=== PATIENT | male | born 1965 | race Caucasian/White ===

== ENCOUNTER → 2023-11-01 | Outpatient (CLI) | payer BC ==
--- NOTE | 2023-11-01 12:13 | CTL ---
EXAMINATION TYPE: CT Low Dose Lung DATE OF EXAM ORDERED: 11/01/2023 HISTORY: Lung cancer screening CT DLP: [address] CTDI: 2.2 mGy Automated exposure control for dose reduction was used. SCREENING VISIT: First COMPARISON: None TECHNIQUE: Low dose computed tomography scan was performed through the chest at 1 mm thick sections a nd reconstructed images in multiple planes at 1 mm and [address] DIAGNOSTIC QUALITY: Satisfactory FINDINGS: There are multiple pulmonary nodules bilaterally the largest of which is in the right lower lobe reshma uring approximately 7 mm. Remaining nodules are either fissural nodules are sub-6 mm nodules. There i s a small focal faint groundglass density in the right upper lobe as well. There are no chronic lung changes. There is no abnormal consolidative/airspace density or abnormal in terstitial density. There is no pleural effusion or pneumothorax. The great vessels the chest are normal there's no mediastinal, hilar or axillary adenopathy. There is no cardiac enlargement. No focal osseous lesions are seen. Limited scanning through the upper abdomen reveals no gross abnormality. IMPRESSION: 1. Lung rads category 3 probably benign 7 mm right lower lobe nodule and multiple bilateral sub-6 mm nodules. Follow-up CT thorax in 6 months is recommended to assess stability. 2. No acute cardiopulmonary disease.
--- NOTE | 2023-11-01 13:17 | CA ---
Transthoracic Echo Report Name: Mukund Sanchez Age: 57 Gender: M : 1965 Exam Date: 11/01/2023 10:17 Exam Location: [facility] Ht (in): 68 Wt (lb): 190 Ordering Physician: Silvestre Ramos DO Attending/Referring Phys: Silvestre Ramos DO [employer] Finishing Supervisor Katie Penn RCS Procedure CPT: Indications: Z91.89 PERSONAL RISK FACTORS Cardiac Hx: Technical Quality: Good Contrast 1: Total Dose (mL): Contrast 2: Total Dose (mL): MEASUREMENTS (Male / Female) Normal Values 2D ECHO LV Diastolic Diameter PLAX 4.1 cm 4.2 - 5.9 / 3.9 - 5.3 cm LV Systolic Diameter PLAX 2.8 cm IVS Diastolic Thickness 1.0 cm 0.6 - 1.0 / 0.6 - 0.9 cm LVPW Diastolic Thickness 0.9 cm 0.6 - 1.0 / 0.6 - 0.9 cm LV Relative Wall Thickness 0.5 RV Internal Dim ED PLAX 3.1 cm LVOT Diameter 2.0 cm LV Diastolic Volume MOD BP 86.1 cm??? 67 - 155 / 56 - 104 cm??? LV Systolic Volume MOD BP 33.1 cm??? 22 - 58 / 19 - 49 cm??? LV Ejection Fraction MOD BP 61.6 % >= 55 % LV Cardiac Index MOD BP 2194.6 cm???/min???m??? LV Diastolic Volume MOD 4C 80.5 cm??? LV Systolic Volume MOD 4C 29.9 cm??? LV Ejection Fraction MOD 4C 62.9 % LV Cardiac Index MOD 4C 2092.4 cm???/min???m??? LV Diastolic Length 4C 8.6 cm LV Systolic Length 4C 6.8 cm LV Diastolic Volume MOD 2C 90.0 cm??? LV Systolic Volume MOD 2C 32.1 cm??? LV Ejection Fraction MOD 2C 64.3 % LV Cardiac Index MOD 2C 2395.4 cm???/min???m??? LV Diastolic Length 2C 9.0 cm LV Systolic Length 2C 7.9 cm LA Volume 45.1 cm??? 18 - 58 / 22 - 52 cm??? LA Volume Index 21.9 cm???/m??? 16 - 28 cm???/m??? DOPPLER AV Peak Velocity 145.4 cm/s AV Peak Gradient 8.5 mmHg AV Mean Velocity 98.1 cm/s AV Mean Gradient 4.4 mmHg AV Velocity Time Integral 28.6 cm LVOT Peak Velocity 120.9 cm/s LVOT Peak Gradient 5.8 mmHg LVOT Velocity Time Integral 26.0 cm LVOT Stroke Volume 83.4 cm??? LVOT Stroke Volume Index 41.7 ml/m??? LVOT Cardiac Index 3449.3 cm???/min???m??? AV Area Cont Eq vti 2.9 cm??? AV Area Cont Eq pk 2.7 cm??? MV Area PHT 4.9 cm??? Mitral E Point Velocity 73.5 cm/s Mitral A Point Velocity 43.4 cm/s Mitral E to A Ratio 1.7 MV Deceleration Time 155.1 ms PV Peak Velocity 96.7 cm/s PV Peak Gradient 3.7 mmHg FINDINGS Left Ventricle Left ventricular ejection fraction is estimated at 55-60 %. Left ventricular cavity size normal. Left ventricular wall thickness normal. No obvious regional wall motion abnormalities. Right Ventricle Normal right ventricular size and function. Unable to estimate right ventricular systolic pressure. Right Atrium Normal right atrial size. Left Atrium Normal left atrial size. Mitral Valve Structurally normal mitral valve. No evidence for mitral valve prolapse. No mitral stenosis. Trace mitral regurgitation. Aortic Valve Trileaflet aortic valve. No aortic valve stenosis or regurgitation. Tricuspid Valve Structurally normal tricuspid valve. No tricuspid stenosis. Trace tricuspid regurgitation. Pulmonic Valve Structurally normal pulmonic valve. No pulmonic stenosis. No pulmonic regurgitation. Pericardium No pericardial effusion. Aorta Normal size aortic root and proximal ascending aorta. CONCLUSIONS Left ventricular ejection fraction is estimated at 55-60 %. No obvious regional wall motion abnormalities. Normal right ventricular size and function. No significant valvular disease Previewed by: Dr Sudeep Gutierrez (Electronically Signed) Final Date: 01 November 2023 13:16
--- NOTE | 2023-11-01 13:19 | CA ---
Stress Echo Report Mukund Sanchez Age: 57 Gender: M : 1965 Exam Date: 11/01/2023 09:58 Exam Location: [facility] Ht (in): 68 Wt (lb): 190 Ordering Physician: Silvestre Ramos DO Referring Physician: Silvestre Ramos DO Vocal Teacher: JF BURCH Technologist Procedure CPT: Indication: Z91.89 PERSONAL RISK FACTORS ICD-9 Codes: Rhythm: Patient History: ELEVATED CHOLESTEROL LEVELS, SMOKER Cardiac Medications: VALSA Medications in past 24 hours: Contrast: Stress Results Protocol: Alex Total dose(mL): Exercise Duration (min:sec): 9:[address] Depression (mm): Angina Score: Benitez Score: METS: 11.3 Resting HR: 77 Resting BP: 118 / 63 Peak HR: 160 Peak BP: 187 / 63 Max Predicted HR: 164 98 % Max Predicted HR Target HR: 139 Double Product: [id number] Stress Summary: BP Response: Reason for Termination: MAX EXERTION/TARGET HR Cardiac Symptoms: NO SYMPTOMS ECG Analysis Resting ECG: Normal sinus rhythm, normal axis Stress ECG: Upsloping ST depressions with peak exercise. Arrhythmia: No significant arrhythmias ectopic beats Echo Analysis Resting Echo: Normal global and segmental systolic function. No obvious regional wall motion abnormality Peak Echo Analysis: No stress-induced regional wall motion abnormality. Normal augmentation of global segmental systolic function MEASUREMENTS (Male/Female) Normal Values CONCLUSIONS Good excess tolerance for age achieving 11.3 mets Nonischemic ECG and echocardiographic response to treadmill exercise Normal hemodynamic and heart response to exercise Overall normal treadmill echo stress test Dr Sudeep Gutierrez (Electronically Signed) Final Date: 01 November 2023 13:19
== END | disposition home or self-care (01) ==
LOC: RADNMMAIN 09:32
PROVIDERS: ATTEND Family Medicine
DX: Z12.2 Encounter for screening for malignant neoplasm of respiratory organs (principal); R91.8 Other nonspecific abnormal finding of lung field; Z91.89 Other specified personal risk factors, not elsewhere classified
CPT/HCPCS: 71271; 93306; 93351

== ENCOUNTER → 2023-11-05 | Outpatient (CLI) | payer BC ==
[2023-11-05 18:37] LABS: BUN/Creat Ratio 16.27 Ratio (12.00-20.00); Blood Urea Nitrogen 17.9 mg/dL (9.0-27.0); Calcium 9.8 mg/dL (8.7-10.3); Carbon Dioxide 26.5 mmol/L (21.6-31.8); Chloride 102 mmol/L (96-109); Glucose 92 mg/dL (70-110); Potassium 4.3 mmol/L (3.5-5.5); Sodium 139 mmol/L (135-145)
== END | disposition home or self-care (01) ==
LOC: LABWHC1 12:56
PROVIDERS: ATTEND Family Medicine
DX: I10 Essential (primary) hypertension (principal)
CPT/HCPCS: 36415; 80048